=== PATIENT | male | born 1965 | race Caucasian/White ===

== ENCOUNTER 2018-08-22 10:29 | Day surgery (SDC) | payer OTHER ==
[2018-08-22] MEDS ORDERED: MIDAZOLAM 1 MG/ML 2 ML INJ (12:36)
[2018-08-22] MEDS ORDERED: FENTAnyl 50 MCG/ML VIAL (12:36)
[2018-08-22] MEDS ORDERED: SODIUM CL BACTERIOSTATIC 30 ML INJ (12:43)
[2018-08-22] MEDS ORDERED: IOHEXOL 300MG/ML 30 ML BTL (12:44)
[2018-08-22] MEDS ORDERED: LIDOCAINE 1% (MPF) 10 ML INJ (12:44)
[2018-08-22] MEDS: METHYLPREDNISOLONE ACET 80 MG/ML 1 ML (13:03)
[2018-08-22] MEDS: LIDOCAINE 1% (MPF) 30 ML INJ (13:03)
[2018-08-22] MEDS ORDERED: PROPOFOL 20 ML (13:16)
[2018-08-22] MEDS ORDERED: LIDOCAINE 2% (SDV) 5 ML INJ (13:16)
[2018-08-22] MEDS ORDERED: EPHEDrine 25 MG/5 ML SYG IV (13:30)
[2018-08-22] MEDS ORDERED: MEPERIDINE 25 MG INJ IV (13:30)
[2018-08-22] MEDS ORDERED: hydrALAzine 20 MG INJ IV (13:30)
[2018-08-22] MEDS ORDERED: FENTAnyl 50 MCG/ML VIAL IV ×3 (13:30)
[2018-08-22] MEDS ORDERED: KETOROLAC 30 MG INJ IV (13:30)
[2018-08-22] MEDS ORDERED: DIPHENHYDRAMINE 50 MG INJ IV (13:30)
[2018-08-22] MEDS ORDERED: OXYCODONE/ACETAMINOPHEN (5/325) TAB PO ×2 (13:30)
[2018-08-22] MEDS ORDERED: ALBUTEROL 0.083% (NEB) 2.5 MG/3 ML AMP HHN (13:30)
[2018-08-22] MEDS ORDERED: MIDAZOLAM 1 MG/ML 2 ML INJ IV (13:30)
[2018-08-22] MEDS ORDERED: LABETALOL HCL 20MG INJ IV (13:30)
[2018-08-22] MEDS ORDERED: ONDANSETRON 4 MG INJ IV (13:30)
== END 2018-08-22 14:40 | disposition home or self-care (01) ==
LOC: SDS 10:29
DX: M47.896 Other spondylosis, lumbar region (principal); G89.29 Other chronic pain; M54.5 Low back pain; I10 Essential (primary) hypertension; E11.9 Type 2 diabetes mellitus without complications; J45.909 Unspecified asthma, uncomplicated; Z95.810 Presence of automatic (implantable) cardiac defibrillator
CPT/HCPCS: 62323; 72100

== ENCOUNTER 2018-11-18 12:41 | Day surgery (SDC) | payer OTHER ==
[~2018-11-18 12:41] MED LIST: CEFAZOLIN 1 GM/50 ML (PMX) 50 ML IVPB
[2018-11-18] MEDS ORDERED: MEPERIDINE 100 MG INJ (14:43)
[2018-11-18] MEDS ORDERED: OXYCODONE/ACETAMINOPHEN (10/325) TAB PO (15:00)
[2018-11-18] MEDS: LIDOCAINE 1% (MPF) 10 ML INJ (15:11)
[2018-11-18] MEDS ORDERED: PROPOFOL 20 ML (15:21)
[2018-11-18] MEDS: METHYLPREDNISOLONE ACET 80 MG/ML 1 ML (15:31)
[2018-11-18] MEDS ORDERED: ONDANSETRON 4 MG INJ IV (16:00)
[2018-11-18] MEDS ORDERED: MEPERIDINE 25 MG INJ IV (16:00)
[2018-11-18] MEDS ORDERED: METOCLOPRAMIDE 10 MG INJ IV (16:00)
[2018-11-18] MEDS ORDERED: FENTAnyl 50 MCG/ML VIAL IV ×3 (16:00)
[2018-11-18] MEDS ORDERED: DIPHENHYDRAMINE 50 MG INJ IV (16:00)
[2018-11-18] MEDS ORDERED: MIDAZOLAM 1 MG/ML 2 ML INJ IV (16:00)
[2018-11-18] MEDS ORDERED: OXYCODONE/ACETAMINOPHEN (5/325) TAB PO (16:00)
[2018-11-18] MEDS: OXYCODONE/ACETAMINOPHEN (5/325) TAB PO (16:08)
== END 2018-11-18 16:50 | disposition home or self-care (01) ==
LOC: SDS 12:41
DX: M47.896 Other spondylosis, lumbar region (principal); M54.16 Radiculopathy, lumbar region; M48.061 Spinal stenosis, lumbar region without neurogenic claudication
CPT/HCPCS: 62323